=== PATIENT | female | born 1960 | race Caucasian/White ===

== ENCOUNTER 2016-11-27 21:43 | Emergency (ER) | payer OTHER ==
[~2016-11-27] VITALS: Ht 160 cm; Wt 61.7 kg
[2016-11-27 21:43] VITALS: BP 138/87
[2016-11-27] MEDS ORDERED: BENA25CA3 PO (21:53)
[2016-11-27] MEDS ORDERED: MULT1TAB18 PO (21:53)
[2016-11-27] MEDS ORDERED: VITATAB11 PO (21:53)
[2016-11-27] MEDS ORDERED: CO Q100C10 PO (21:53)
[2016-11-27] MEDS ORDERED: CLON0.5T PO (21:53)
[2016-11-27] MEDS ORDERED: LIPI20TA PO (21:53)
== END 2016-11-27 23:23 | disposition left against medical advice (07) ==
LOC: M ED 22:46
DX: Z53.29 Procedure and treatment not carried out because of patient's decision for other reasons (principal)

== ENCOUNTER → 2017-09-17 | Outpatient (REF) | payer MEDICARE, OTHER ==
[2017-09-22 14:16] LABS: HPV HYBRID CAPTURE II Negative (Negative)
== END ==
LOC: M LAB REF 16:49
DX: Z01.419 Encounter for gynecological examination (general) (routine) without abnormal findings (principal); Z11.51 Encounter for screening for human papillomavirus (HPV)
CPT/HCPCS: G0123

== ENCOUNTER 2017-12-23 15:53 | Emergency (ER) | payer MEDICARE, OTHER ==
[2017-12-23 17:04] LABS: BASO % 0.6 % (0.0-1.0); EOS # 0.1 10^3/uL (0.0-0.50); HEMATOCRIT 38.7 % (36.0-47.0); HEMOGLOBIN 12.7 g/dl (12.0-15.5); IMMATURE GRANULOCYTE % 0.3 % (0-3.0); LYMPH # 1.3 10^3/uL (1.5-4.5); MEAN CORPUSCULAR HGB CONC 32.8 g/dl (32.0-36.5); MEAN CORPUSCULAR VOLUME 91.3 fl (80.0-96.0); MONO # 0.5 10^3/uL (0.0-0.8); MONO % 7.7 % (0.0-5.0); NEUTROPHILS # 4.9 10^3/uL (1.8-7.7); NEUTROPHILS % 70.4 % (36.0-66.0); PLATELET COUNT, AUTOMATED 252 10^3/uL (150-450); RED BLOOD COUNT 4.24 10^6/uL (4.00-5.40); RED CELL DISTRIBUTION WIDTH 13.5 % (11.5-14.5); WHITE BLOOD COUNT 6.9 10^3/uL (4.0-10.0)
[2017-12-23 17:22] LABS: ALBUMIN 4.2 GM/DL (3.2-5.2); ALBUMIN/GLOBULIN RATIO 1.11 (1.00-1.93); ALKALINE PHOSPHATASE 65 U/L (45-117); ALT/SGPT 22 U/L (12-78); ANION GAP 6 MEQ/L (8-16); AST/SGOT 22 U/L (7-37); BILIRUBIN,DIRECT 0.1 MG/DL (0.0-0.2); BILIRUBIN,TOTAL 0.4 MG/DL (0.2-1.0); BLOOD UREA NITROGEN 17 MG/DL (7-18); CALCIUM LEVEL 8.9 MG/DL (8.5-10.1); CARBON DIOXIDE LEVEL 28 MEQ/L (21-32); CHLORIDE LEVEL 108 MEQ/L (98-107); CPK CREATINE PHOSPHOKINASE 67 U/L (26-192); CREATININE FOR GFR 1.21 MG/DL (0.55-1.30); GLUCOSE, FASTING 116 MG/DL (70-100); MAGNESIUM LEVEL 2.2 MG/DL (1.8-2.4); POTASSIUM SERUM 3.7 MEQ/L (3.5-5.1); SODIUM LEVEL 142 MEQ/L (136-145); TROPONIN I < 0.02 NG/ML (< 0.10)
[2017-12-23 17:27] LABS: CK-MB VALUE MASS 1.2 NG/ML (<3.6); MB/CK RELATIVE INDEX 1.79 (< OR =4)
[2017-12-23 19:41] LABS: CPK CREATINE PHOSPHOKINASE 60 U/L (26-192); TROPONIN I < 0.02 NG/ML (< 0.10)
[2017-12-23 19:42] LABS: CK-MB VALUE MASS 1.2 NG/ML (<3.6)
== END 2017-12-23 20:55 | disposition home or self-care (01) ==
LOC: M ED 15:53
DX: R07.9 Chest pain, unspecified (principal); R00.2 Palpitations; I45.19 Other right bundle-branch block; F43.10 Post-traumatic stress disorder, unspecified; F41.0 Panic disorder [episodic paroxysmal anxiety]; Z79.899 Other long term (current) drug therapy; Z88.8 Allergy status to other drugs, medicaments and biological substances
CPT/HCPCS: 71045

== ENCOUNTER 2018-07-14 10:26 | Emergency (ER) | payer MEDICARE, OTHER ==
[~2018-07-14] VITALS: Ht 160 cm; Wt 62.3 kg
[~2018-07-14 10:26] MED LIST: BENA25CA3 PO; CLON0.5T8 PO; CO Q100C10 PO; LIPI20TA PO; MULT1TAB18 PO; VITATAB11 PO
[2018-07-14 10:27] VITALS: BP 155/84
[2018-07-14] MEDS ORDERED: ADACEL/BOOSTRIX VACCINE (DIPHTH/PERTUSS/ACELL/TETANUS)0.5ML SYR (90715) IM ONE (10:45)
[2018-07-14] MEDS ORDERED: AUGM875T28 PO (11:17)
--- NOTE | 2018-07-14 11:22 | REP ---
Left hand series: Four views. History: Dog bite injury. Multiple puncture wounds. Findings: Metallic jewelry overlies the distal radius and ulna on two of the views. There is normal overall mineralization. No fracture is seen. No soft tissue gas is seen. Minimal spurring is seen at the DIP joints of the index and long finger. Impression: No fracture seen. Minimal spurring at the index and long finger DIP joints. Electronically Signed by Phil Medina MD 07/14/2018 05:01 P
== END 2018-07-14 11:23 | disposition home or self-care (01) ==
LOC: M ED 10:26
DX: S61.432A Puncture wound without foreign body of left hand, initial encounter (principal); W54.0XXA Bitten by dog, initial encounter; Y92.89 Other specified places as the place of occurrence of the external cause; Y93.9 Activity, unspecified; Y99.9 Unspecified external cause status; Z79.899 Other long term (current) drug therapy; Z88.8 Allergy status to other drugs, medicaments and biological substances

== ENCOUNTER → 2019-05-30 | Outpatient (REF) | payer MEDICARE, OTHER ==
[~2019-05-30] MED LIST changes: +AUGM875T28 PO
== END ==
LOC: M LAB REF 17:32
PROVIDERS: ATTEND Obstetrics & Gynecology
DX: N92.4 Excessive bleeding in the premenopausal period (principal)

== ENCOUNTER → 2019-07-19 | Outpatient (CLI) | payer MEDICARE, OTHER ==
[~2019-07-19] MED LIST changes: +CLON0.5T2 PO; -CLON0.5T8 PO
--- NOTE | 2019-07-19 10:31 | REP ---
PELVIC ULTRASOUND: Real-time sonographic evaluation of the pelvis is performed utilizing transabdominal and endovaginal technique. Bladder measures 10.6 x 7.3 x 10.0 cm. Uterus measures 9.8 x 4.0 x 6.6 cm. Endometrium is somewhat ill-defined. Thickness is approximately 7 mm. Patient reportedly had endometrial biopsy May 2019. No endometrial fluid collection is seen. Right ovary measures 2.6 x 1.8 x 2.8 cm and left ovary 4.3 x 3.1 x 3.2 cm. Cystic structures are seen in each ovary, largest in the right ovary 2.0 x 1.9 x 1.4 cm and largest in the left ovary 2.8 x 2.5 x 2.2 cm and 2.5 x 2.1 x 2.6 cm. Small nabothian cysts are seen in the region of the cervix. No free fluid is seen. IMPRESSION: Endometrial thickness 7 mm. Endometrium is heterogeneous and somewhat ill-defined. Small cystic structures are seen in each ovary as discussed above. No free fluid.
== END ==
LOC: M WHC 07:53
PROVIDERS: ATTEND Obstetrics & Gynecology
DX: N92.4 Excessive bleeding in the premenopausal period (principal)

== ENCOUNTER 2019-09-04 08:07 | Outpatient (RCR) | payer MEDICARE, OTHER | END 2019-09-09 | LOC: M PT 08:07 | PROVIDERS: ATTEND Family Medicine | DX: R10.30 Lower abdominal pain, unspecified (principal); Z78.0 Asymptomatic menopausal state ==

== ENCOUNTER 2019-09-15 07:26 | Outpatient (RCR) | payer MEDICARE, OTHER | END 2019-10-10 | LOC: M PT 07:26 | PROVIDERS: ATTEND Family Medicine | DX: Z51.89 Encounter for other specified aftercare (principal); R10.2 Pelvic and perineal pain ==

== ENCOUNTER → 2020-06-10 | Outpatient (CLI) | payer MEDICARE, OTHER | LOC: M LABSMTC 11:17 → EEVIPCON 11:17 | PROVIDERS: ATTEND Family Medicine | DX: Z20.828 Contact with and (suspected) exposure to other viral communicable diseases (principal) ==

== ENCOUNTER → 2023-12-29 | Outpatient (CLI) | payer OTHER | LOC: M WHC 10:58 | PROVIDERS: ATTEND Physician Assistant Medical | DX: M81.0 Age-related osteoporosis without current pathological fracture (principal) ==

== ENCOUNTER 2025-06-10 23:32 | Emergency (ER) | payer OTHER ==
[~2025-06-10] VITALS: Ht 160 cm; Wt 65.9 kg
[2025-06-11 00:18] LABS: CK-MB VALUE MASS 1.9 NG/ML (<3.6)
[2025-06-11 00:19] LABS: BASO # 0.0 10^3/uL (0.0-0.2); BASO % 0.6 % (0.0-1.0); CPK CREATINE PHOSPHOKINASE 75.0 U/L (34-145); EOS # 0.2 10^3/uL (0.0-0.5); EOS % 2.4 % (0.0-3.0); LYMPH # 2.7 10^3/uL (1.5-5.0); LYMPH % 38.4 % (24.0-44.0); MB/CK RELATIVE INDEX 2.53 (< OR =4); MONO # 0.6 10^3/uL (0.0-0.8); MONO % 7.8 % (2.0-8.0); NEUTROPHILS # 3.6 10^3/uL (1.5-8.5); NEUTROPHILS % 50.5 % (36.0-66.0); PLATELET COUNT, AUTOMATED 276 10^3/uL (150-450)
[2025-06-11 00:20] LABS: CALCIUM LEVEL 9.3 MG/DL (8.3-10.6); CARBON DIOXIDE LEVEL 26.0 MMOL/L (20-31); CHLORIDE LEVEL 108.0 MMOL/L (98-107); CREATININE FOR GFR 1.01 MG/DL (0.55-1.30); GLOMERULAR FILTRATION RATE 62.6 (>45); POTASSIUM SERUM 4.1 MMOL/L (3.5-5.1); SODIUM LEVEL 144.0 MMOL/L (136-145)
[2025-06-11 01:18] LABS: MAGNESIUM LEVEL 2.0 MG/DL (1.8-2.4); PHOSPHORUS LEVEL 2.8 MG/DL (2.4-5.1)
[2025-06-11 01:21] LABS: FREE T4 1.47 NG/DL (0.89-1.76)
[2025-06-11 01:34] LABS: KETONE, URINE AUTO RFX NEGATIVE (NEGATIVE); LEUKOCYTE ESTERASE UR AUTO RFX NEGATIVE (NEGATIVE); NITRITE, URINE AUTO RFX NEGATIVE (NEGATIVE); RBC, URINE AUTO RFX 1 /HPF (0-3); SQUAM EPITHELIAL CELL UR AURFX 0 /HPF (0-6); WBC, URINE AUTO RFX 0 /HPF (0-3)
[2025-06-11] MEDS ORDERED: XANA0.5T PO (04:18)
[2025-06-11 04:30] VITALS: BP 108/60; TEMP 97.1; O2SAT 91
== END 2025-06-11 04:35 | disposition home or self-care (01) ==
LOC: EDBD 23:32 → M ED 23:32 → EDSEX 23:32 → M ED 06-11 04:35
DX: F41.9 Anxiety disorder, unspecified (principal); E78.5 Hyperlipidemia, unspecified; Z88.8 Allergy status to other drugs, medicaments and biological substances; Z79.2 Long term (current) use of antibiotics; Z79.899 Other long term (current) drug therapy

== ENCOUNTER 2025-06-15 20:59 | Emergency (ER) | payer OTHER ==
[~2025-06-15 20:59] MED LIST changes: +XANA0.5T PO
[2025-06-15 22:12] LABS: PLATELET COUNT, AUTOMATED 266 10^3/uL (150-450)
[2025-06-15 22:31] LABS: AMPHETAMINES LEVEL URINE NEGATIVE (NEGATIVE); BARBITURATES URINE NEGATIVE (NEGATIVE); BENZODIAZEPINES URINE NEGATIVE (NEGATIVE); CANNABINOIDS URINE NEGATIVE (NEGATIVE); COCAINE METABOLITE URINE NEGATIVE (NEGATIVE); METHADONE URINE NEGATIVE (NEGATIVE); OPIATES URINE NEGATIVE (NEGATIVE); PHENCYCLIDINE URINE NEGATIVE (NEGATIVE)
[2025-06-15 22:42] LABS: ETHYL ALCOHOL (ETHANOL) < 0.003 % (0.000-0.010)
[2025-06-15 22:43] LABS: ALT/SGPT 19 U/L (7.0-40); AST/SGOT 25 U/L (<34); CALCIUM LEVEL 9.3 MG/DL (8.3-10.6); CARBON DIOXIDE LEVEL 26 MMOL/L (20-31); CHLORIDE LEVEL 107 MMOL/L (98-107); CREATININE FOR GFR 1.10 MG/DL (0.55-1.30); GLOMERULAR FILTRATION RATE 56.5 (>45); POTASSIUM SERUM 4.2 MMOL/L (3.5-5.1); SODIUM LEVEL 142 MMOL/L (136-145)
[2025-06-15 22:44] LABS: SALICYLATE LEVEL < 3.0 MG/DL (<30)
[2025-06-16] MEDS: ALPRAZolam 0.5 MG TAB PO ONE (01:13)
[2025-06-16 01:28] VITALS: BP 145/89; TEMP 98.5; O2SAT 100
== END 2025-06-16 01:30 | disposition home or self-care (01) ==
LOC: M ED 20:59
DX: F41.0 Panic disorder [episodic paroxysmal anxiety] (principal); E78.5 Hyperlipidemia, unspecified; F10.10 Alcohol abuse, uncomplicated; Z88.8 Allergy status to other drugs, medicaments and biological substances; Z79.899 Other long term (current) drug therapy

== ENCOUNTER → 2025-06-27 | Outpatient (REF) | payer OTHER, MEDICARE ==
[2025-06-29 13:11] LABS: METANEPHRINE TOTAL URINE 73 ug/L (Undefined); METANEPHRINE URINE 150 ug/24 hr (36-209); NORMETANEPHRINE TOTAL URINE 136 ug/L (Undefined); NORMETANEPHRINE URINE 279 ug/24 hr (131-612)
== END ==
LOC: M SFHCWAGY 10:37
PROVIDERS: ATTEND Physician Assistant
DX: R00.2 Palpitations (principal)